=== PATIENT | female | born 1960 | race Caucasian/White ===

== ENCOUNTER 2017-04-01 09:00 | Outpatient (RCR) | payer BC ==
[~2017-04-01 09:00] MED LIST: BENZONATATE200 MG PO; CALCIUM 500 +1 EAC3; FISH OIL500 M1; GABAPENTIN100 MG; HYDROEYE OU; METOPROLOL SUCC25 MG PO; MULTIVITAMIN; OMEPRAZOLE40 MG; VITAMIN; VITAMIN B-121000 MCG PO; VITAMIN C500 MG; VITAMIN D35000 UNI1; VITAMIN E400 UNI2; ZYRTEC10 MG PO
== END 2017-04-04 ==
LOC: PT 09:00
PROVIDERS: ATTEND Podiatrist Foot & Ankle Surgery
DX: M72.2 Plantar fascial fibromatosis (principal); M77.32 Calcaneal spur, left foot; M77.31 Calcaneal spur, right foot; M79.672 Pain in left foot; M79.671 Pain in right foot; R26.2 Difficulty in walking, not elsewhere classified